=== PATIENT | male | born 1965 | race Caucasian/White ===

== ENCOUNTER 2016-09-29 07:50 | Emergency (ER) | payer OTHER ==
[2016-09-29 08:50] LABS: URINE MUCUS NONE SEEN (Up to 25%); URINE RBC NONE SEEN (0-5/hpf)
[2016-09-29] MEDS ORDERED: LOPERAMIDE HCL 2 MG CAPSULE PO ONE (08:54)
[2016-09-29 08:56] LABS: BASOPHILS 0.6 % (0.0-2.0); EOSINOPHILS# 0.2 X 10^3uL (0.0-0.4); HEMATOCRIT 45.7 % (42.0-54.0); HEMOGLOBIN 15.4 g/dL (14.0-18.0); LYMPHOCYTES 28.9 % (20.0-40.0); LYMPHOCYTES# 1.5 X 10^3uL (0.8-3.8); MEAN CORPUS. HGB CONCENTRATION 33.8 g/dL (32.0-36.0); MEAN CORPUSCULAR HEMOGLOBIN 30.7 pg (29.0-35.0); MEAN PLATELET VOLUME 8.7 fL (7.4-10.4); MONOCYTES 18.4 % (2.0-10.0); MONOCYTES# 0.9 X 10^3uL (0.2-1.0); NEUTROPHILS 49.1 % (54.0-75.0); NEUTROPHILS# 2.5 X 10^3uL (2.6-6.7); PLATELET COUNT 217 X 10^3uL (130-440); RED BLOOD COUNT 5.02 X 10^6uL (4.20-6.10); RED CELL DISTRIBUTION WIDTH 14.9 % (11.5-14.5); WHITE BLOOD COUNT 5.1 X 10^3uL (3.9-10.7)
[2016-09-29 09:08] LABS: BLOOD UREA NITROGEN 19 mg/dL (9-20); CALCIUM 8.5 mg/dL (8.4-10.2); CHLORIDE 108 mmol/L (98-107); EST GLOMERULAR FILTRATION RATE > 60 mL/min; GLUCOSE 81 mg/dL (70-100); POTASSIUM 3.5 mmol/L (3.5-5.1); SODIUM 140 mmol/L (137-145)
[2016-09-29 09:11] LABS: URINE APPEARANCE CLEAR; URINE BILIRUBIN NEGATIVE (NEGATIVE); URINE COLOR YELLOW; URINE GLUCOSE NORMAL (NEGATIVE); URINE KETONE NEGATIVE (NEGATIVE); URINE LEUKOCYTE ESTERASE NEGATIVE (NEGATIVE); URINE NITRITE NEGATIVE (NEGATIVE); URINE PROTEIN 10mg/dL (trace) (NEG - TRACE); URINE UROBILINOGEN NORMAL (NEG-1mg/dL)
[2016-09-29 09:12] LABS: URINE BACTERIA NONE SEEN (<10/hpf); URINE BLOOD NEGATIVE (NEGATIVE); URINE SQUAMOUS EPITHELIAL CELL 0-5/hpf (<= 15/hpf); URINE WBC 0-4/hpf (0-4/hpf)
--- NOTE | 2016-09-29 10:42 | ER PHYSICIAN DOCUMENTATION ---
Physician Documentation [facility] Name:Brayan Zayas Age:51 yrs Sex:Male :1965 Arrival Date:09/29/2016 Time:07:50 Bed4 Private MD: Javier Nava Disposition: 09/29 10:00 Chart complete. cd Disposition: 09/29/16 09:58 Discharged to Home/Self Care. Impression: Gastroenteritis: Bacterial, Unspecified, Dehydration. - Condition is Good. - Discharge Instructions: DEHYDRATION (7y-Adult), BACTER GASTROENT Child Adult - GASTROENTERITIS, Bacterial [7y-Adult]. - Prescriptions for Cipro 500 mg Oral Tablet - take 1 tablet by ORAL route every 12 hours for 7 days; 14 tablet. - Medical Reconciliation form form. - Follow up: Private Physician; When: 7 - 10 days; Reason: Recheck today's complaints, Continuance of care. - Problem is new. - Symptoms have improved. - Notes: Take Cipro 500mg by mouth every 12 hours for 7 days... Use Immodium AD 2mg by mouth after each loose stool...only two more today. BRAT diet, bananas, rice, applesauce and toast today , then slowly advance your diet. Drink 3 quarts of water today and tomorrow.... HPI: 08:00 This 51 yrs old Male presents to ER via Private Vehicle with complaints of cd Severe explosive Diarrhea. 08:00 The patient presents to the emergency department with nausea, that is mild, with cd diarrhea, that is intermittent, 3 times today, described as watery, explosive and very foul. Started two days ago. Last night had huge BM in the bed, very watery, explosive and foul smelling, without any complaints of abdominal pain. Onset: The symptom(s)/episode began/occurred acutely, 2 day(s) ago. Possible causes: unknown. Associated signs and symptoms: Pertinent positives: anorexia, diarrhea, Pertinent negatives: abdominal pain, fever, GI bleeding, nausea, vomiting. Severity of symptoms: At their worst the symptoms were severe in the emergency department the symptoms have improved mildly. The patient has not experienced similar symptoms in the past. The patient has not recently seen a physician. Historical: - Allergies: non-paper tape; - Home Meds: 1. Topamax Oral 2. renexa 3. Verapamil Oral 4. Coumadin Oral 5. Atenolol Oral 6. prevastatin 7. Allopurinol Oral 8. Aspirin Oral - PMHx: CHF; cardiomyopathy; GOUT; HYPERTENSION; HIGH CHOLESTEROL; - PSHx: 2 open heart surgeries, aneurysm repair and valve replacement; - Tetanus: < 10 years. - Ebola Screening: : Patient negative for fever greater than or equal to 101.5 degrees Fahrenheit, and additional compatible Ebola Virus Disease symptoms. Patient denies exposure to infectious person. Patient denies travel to an Ebola-affected area in the 21 days before illness onset. No symptoms or risks identified at this time. . - Immunization history: Flu Vaccine < 1 year. - Social history: Smoking status: Patient states was never smoker of tobacco. ROS: 08:10 ENT: Negative for injury, pain, epistaxis and discharge. cd Cardiovascular: Negative for chest pain, palpitations, edema and pleuritic pain. Respiratory: Negative for shortness of breath, dyspnea on exertion, cough, sputum production, wheezing, hemoptysis and pleuritic chest pain. Back: Negative for injury, pain or muscle spasms. : Negative for injury, bleeding, discharge, swelling, dysuria, frequency or urgency. MS/Extremity: Negative for injury, deformity, edema, calf tenderness, pain or coldness. Skin: Negative for injury, rash, itching and discoloration. 08:10 Neuro: Negative for headache, weakness, numbness, tingling, and seizure. cd 08:10 Constitutional: Positive for poor PO intake, Negative for chills, fever. 08:10 Abdomen/GI: Positive for diarrhea, anorexia, bowel incontinence, Negative for abdominal pain, nausea, vomiting, abdominal distension, hematemesis, black/tarry stool, rectal bleeding. 08:10 All other systems are negative. Exam: 08:20 ENT: Nares patent. No nasal discharge, no septal abnormalities noted. Tympanic cd membranes are normal and external auditory canals are clear. Oropharynx with no redness, swelling, or masses, exudates, or evidence of obstruction, uvula midline. Mucous membranes dry Back: No spinal tenderness. No costovertebral tenderness. Full range of motion. Skin: Warm, dry with normal turgor. Normal color with no rashes, no lesions, and no evidence of cellulitis. MS/ Extremity: Pulses equal, no cyanosis. Neurovascular intact. Full, normal range of motion. 08:20 Neuro: Awake and alert, GCS 15, oriented to person, place, time, and situation. Cranial nerves II-XII grossly intact. Motor strength 5/5 in all extremities. Sensory grossly intact. Cerebellar exam normal. Normal gait. 08:20 Constitutional: The patient appears alert, awake, non-diaphoretic, non-toxic, well developed, well nourished, anxious, in obvious distress, moderately distressed. 08:20 Cardiovascular: Rate: normal, Rhythm: regular, Pulses: no pulse deficits are appreciated, Heart sounds: normal. 08:20 Respiratory: the patient does not display signs of respiratory distress, Respirations: normal, no acute changes, Breath sounds: are normal, clear throughout. 08:20 Abdomen/GI: Inspection: abdomen appears normal, Bowel sounds: hyperactive, Palpation: abdomen is soft and non-tender, Rectal exam: the exam is deferred. Vital Signs: 07:58 BP 160 / 81; Pulse 100; Resp 18; Temp 98.1; Pulse Ox 97% ; Weight 83.91 kg; Height 6 jt ft. 1 in. (185.42 cm); Pain 2/10; 10:10 BP 132 / 82; Pulse 71; Resp 14; Pulse Ox 97% on R/A; Pain 0/10; tg 07:58 Body Mass Index 24.41 (83.91 kg, 185.42 cm) jt MDM: 08:10 Data reviewed: vital signs, nurses notes, old medical records, and as a result, I will cd continue to observe the patient, administer IV fluids, NS bolus, NS maintenence. Data interpreted: Pulse oximetry: on room air is 97 %. Interpretation: normal. 08:25 Differential diagnosis: viral gastroenteritis, gastroenteritis, Dehydration. cd 08:25 Test interpretation: by ED physician or midlevel provider: C. Diff was done and found cd to be negative.. 08:41 Patient medically screened. cd 09:55 Counseling: I had a detailed discussion with the patient and/or guardian regarding: the cd historical points, exam findings, and any diagnostic results supporting the discharge/admit diagnosis, lab results, the need for outpatient follow up, for a recheck, with the patient's primary care provider, to return to the emergency department if symptoms worsen or persist or if there are any questions or concerns that arise at home. Response to treatment: the patient's symptoms have markedly improved after treatment, the patient's condition has returned to base line, the patient is now symptom free, and as a result, I will discharge patient. 09/29 09:04 Order name: CBC AUTO DIF, MDIF/RMOR IF IND; Complete Time: 09:52 EDMS 09/29 09:52 Interpretation: Normal. cd 09/29 09:12 Order name: BASIC METABOLIC PANEL; Complete Time: 09:52 EDMS 09/29 09:52 Interpretation: Normal. cd 09/29 09:13 Order name: UA W/ MICRO -CULTURE IF IND; Complete Time: 09:52 EDMS 09/29 Interpretation: Normal: Normal. cd 09/29 09:45 Order name: FECAL LEUKS (LACTOFERRIN) EDMS 09/29 09:52 Interpretation: Abnormal: FECAL LEUKS (LACTOFERRIN) POSITIVE. cd 09/29 09:45 Order name: GIARDIA ASSAY EDCO 09/29 09:52 Interpretation: Normal. cd 09/29 09:45 Order name: STOOL CULTURE PANEL EDCO 09/29 09:52 Interpretation: Normal. cd Dispensed Medications: 08:28 Drug: NS 0.9% 1000 ml; Route: IV; Rate: bolus; Site: right antecubital; Delivery: tg [place] Tubing; 08:51 Follow up: IV Status: Completed infusion; IV Intake: 1000ml tg 08:52 Drug: Loperamide 4 mg; Route: PO; tg 10:41 Follow up: Response: No adverse reaction tg 08:52 Drug: NS 0.9% 1000 ml; Route: IV; Rate: bolus; Site: right antecubital; Delivery: tg [place] Tubing; 10:40 Follow up: IV Status: Completed infusion; IV Intake: 1000ml tg Signatures: Edinson Bunch RN RN tg Javier Fernandes MD MD cd
--- NOTE | 2016-09-29 10:42 | ER NURSING DOCUMENTATION ---
Nurse's Notes [facility] Name:Brayan Zayas Age:51 yrs Sex:Male :1965 Arrival Date:09/29/2016 Time:07:50 Bed4 Private MD: Diagnosis:Gastroenteritis: Bacterial, Unspecified;Dehydration Presentation: 09/29 07:52 Acuity: ROBERT 3 tg 07:59 Presenting complaint: Patient states: "Extreme diarrhea" Began Friday, was incontinent tg of stool this AM. Large amount, brown, soft. 3 times today. Transition of care: patient was not received from another setting of care. 07:59 Method Of Arrival: Private Vehicle tg 08:08 Notified ED Physician of patient's arrival and CC Dr. Fernandes notified. tg Triage Assessment: 08:09 General: Appears in no apparent distress, Behavior is cooperative. Pain: Complains of tg pain in abdomen Quality of pain is described as crampy. Neuro: Level of Consciousness is awake, alert. Cardiovascular: Capillary refill < 3 seconds. Respiratory: Respiratory effort is even, unlabored. GI: Reports diarrhea, Denies vomiting. Derm: Skin is pink, warm & dry. Historical: - Allergies: non-paper tape; - Home Meds: 1. Topamax Oral 2. renexa 3. Verapamil Oral 4. Coumadin Oral 5. Atenolol Oral 6. prevastatin 7. Allopurinol Oral 8. Aspirin Oral - PMHx: CHF; cardiomyopathy; GOUT; HYPERTENSION; HIGH CHOLESTEROL; - PSHx: 2 open heart surgeries, aneurysm repair and valve replacement; - Tetanus: < 10 years. - Ebola Screening: : Patient negative for fever greater than or equal to 101.5 degrees Fahrenheit, and additional compatible Ebola Virus Disease symptoms. Patient denies exposure to infectious person. Patient denies travel to an Ebola-affected area in the 21 days before illness onset. No symptoms or risks identified at this time. . - Immunization history: Flu Vaccine < 1 year. - Social history: Smoking status: Patient states was never smoker of tobacco. Screenin:12 Infectious Disease Risk Unable to Obtain. Abuse screen: Denies threats or abuse. Denies tg injuries from another. Nutritional screening: No deficits noted. Assessment: 08:29 See Triage Assessment done by same RN. tg Vital Signs: 07:58 BP 160 / 81; Pulse 100; Resp 18; Temp 98.1; Pulse Ox 97% ; Weight 83.91 kg; Height 6 jt ft. 1 in. (185.42 cm); Pain 2/10; 10:10 BP 132 / 82; Pulse 71; Resp 14; Pulse Ox 97% on R/A; Pain 0/10; tg 07:58 Body Mass Index 24.41 (83.91 kg, 185.42 cm) jt ED Course: 07:51 Patient arrived in ED. jt 07:52 Edinson Bunch, RN is Primary Nurse. tg 07:52 Triage completed. tg 08:12 Arm band placed on. tg 08:12 Valuables Remains with patient. tg 08:26 Inserted peripheral IV: 20 gauge in right antecubital area and blood collected. saline jt lock:. 08:28 Urine collected. Voided stool collected. tg 08:30 Assisted to bathroom. tg 08:41 Javier Fernandes MD is Attending Physician. cd Administered Medications: 08:28 Drug: NS 0.9% 1000 ml; Route: IV; Rate: bolus; Site: right antecubital; Delivery: tg [place] Tubing; 08:51 Follow up: IV Status: Completed infusion; IV Intake: 1000ml tg 08:52 Drug: Loperamide 4 mg; Route: PO; tg 10:41 Follow up: Response: No adverse reaction tg 08:52 Drug: NS 0.9% 1000 ml; Route: IV; Rate: bolus; Site: right antecubital; Delivery: tg [place] Tubing; 10:40 Follow up: IV Status: Completed infusion; IV Intake: 1000ml tg Intake: 08:51 IV: 1000ml; Total: 1000ml. tg 10:40 IV: 1000ml; Total: 2000ml. tg Outcome: 09:58 Discharge ordered by . cd 10:10 Discharged to home ambulatory. tg 10:10 Condition: stable 10:10 Discharge Assessment: Patient awake, alert and oriented x 3. No cognitive and/or functional deficits noted. Patient verbalized understanding of disposition instructions. 10:10 Instructed on discharge instructions, follow up and referral plans. medication usage, Prescriptions given X 1. 10:10 IV D/Lev 10:41 Patient left the ED. tg 09/30 11:02 Discharge F/U Call: Unable to reach: no answer ma Signatures: Edinson Bunch, RN RN Lalitha Yee, RN RN Javier Manzanares MD MD cd Tennant, Joanne jt
== END 2016-09-29 10:42 | disposition home or self-care (01) ==
LOC: ER 07:50
DX: A04.9 Bacterial intestinal infection, unspecified (principal); E86.0 Dehydration; I10 Essential (primary) hypertension; I42.9 Cardiomyopathy, unspecified; Z79.01 Long term (current) use of anticoagulants; Z79.899 Other long term (current) drug therapy; Z79.82 Long term (current) use of aspirin
CPT/HCPCS: 80048; 81001; 83630; 85025; 87188; 87329; 87493; 87899; 96360; 96361; 99284